=== PATIENT | male | born 1940 | race Caucasian/White ===

== ENCOUNTER 2019-09-23 12:29 | Emergency (ER) | payer MEDICARE ==
[2019-09-23 13:02] VITALS: BP 145/85; PULSE 66; RESP 16; TEMP 97.5
--- NOTE | 2019-09-23 13:28 | ED ---
Upper Extremity HPI - General Chief Complaint: Extremity Injury, Upper Stated Complaint: Fall/right elbow injury Time Seen by Provider: 09/23/19 13:05 Source: patient, RN notes reviewed Mode of arrival: wheelchair Limitations: no limitations - History of Present Illness Initial Comments: This an 79-year-old male presents emergency Department with chief complaint of right arm fracture. Patient was seen at [facility] and sent here for evaluation. Patient was diagnosed with a right olecranon fracture. She has an appointment on Thursday with Connie. Patient stated that the physician there is a today they felt that he needed to be seen sooner so presented. Patient denies any paresthesias states that his swollen but essentially no pain current ly. Patient states he had mechanical fall yesterday. Denies any head injury no other injuries noted. - Related Data Allergies Allergy/AdvReac Type Severity Reaction Status Date / Time No Known Allergies Allergy Verified 09/23/19 13:03 Review of Systems ROS Statement: Those systems with pertinent positive or pertinent negative responses have been documented in the HPI. ROS Other: All systems not noted in ROS Statement are negative. Past Medical History Past Medical History: Dementia, Hypertension History of Any Multi-Drug Resistant Organisms: None Reported Additional Past Surgical History / Comment(s): hip Past Psychological History: No Psychological Hx Reported Smoking Status: Former smoker Past Alcohol Use History: None Reported Past Drug Use History: None Reported General Exam Limitations: no limitations General appearance: alert, in no apparent distress Head exam: Present: atraumatic, normocephalic, normal inspection Respiratory exam: Present: normal lung sounds bilaterally. Absent: respiratory distress, wheezes, rales, rhonchi, stridor Cardiovascular Exam: Present: regular rate, normal rhythm, normal heart sounds. Absent: systolic murmur, diastolic murmur, rubs, gallop, clicks Extremities exam: Present: other (Right arm there is moderate swelling at the elbow, neurovascular intact right arm limited range of motion secondary to pain no pain proximal or distal.) Neurological exam: Present: alert, oriented X3 Skin exam: Present: warm, dry, intact, normal color. Absent: rash Course Vital Signs 09/23/19 12:59 Temperature 97.5 F L Pulse Rate 66 Respiratory 16 Rate Blood Pressure 145/85 O2 Sat by Pulse 97 Oximetry Procedures - Orthopedic Splinting/Casting Injury #1 Side: right Upper Extremity Injury Location: long arm, elbow Upper Extremity Immobilizer: posterior splint, synthetic pre-padded splint Medical Decision Making - Medical Decision Making X-rays were reviewed patient has stable fracture neurovascular intact no evidence of compartment syndrome patient was placed in a long-arm splint. He did have a small abrasion but states his tetanus is up-to-date. Patient will be discharged and will follow-up at his scheduled appointment on Thursday. Disposition Clinical Impression: Fracture of right olecranon process Disposition: HOME SELF-CARE Condition: Stable Instructions (If sedation given, give patient instructions): Arm Fracture in Adults (ED) Additional Instructions: Please return to the Emergency Department if symptoms worsen or any other concerns. Is patient prescribed a controlled substance at d/c from ED?: No Referrals: Elie Khan MD [Primary Care Provider] - 1-2 days Mendoza Freitas DO [Medical Doctor] - 1-2 days Time of Disposition: 13:27
[2019-09-23] MEDS ORDERED: ACET/COD 300 MG/30 MG STARTER PACK 6 TAB BTL PO STA (13:31)
== END 2019-09-23 13:42 | disposition home or self-care (01) ==
LOC: EC 12:29
DX: S52.021A Displaced fracture of olecranon process without intraarticular extension of right ulna, initial encounter for closed fracture (principal); I10 Essential (primary) hypertension; F03.90 Unspecified dementia, unspecified severity, without behavioral disturbance, psychotic disturbance, mood disturbance, and anxiety; Z87.891 Personal history of nicotine dependence; X58.XXXA Exposure to other specified factors, initial encounter
CPT/HCPCS: 29105; 99283

== ENCOUNTER 2019-09-30 12:07 | Inpatient (IN) | payer MEDICARE ==
[2019-09-29 08:59] VITALS: BMI 34.2
[~2019-09-30 12:07] MED LIST: DEXAMETHASONE SOD PHOSPHATE 10 MG/ML 1 ML VIAL IV ONE; HYDROmorphone 0.5 MG/0.5 ML SYRINGE IVP PRN; LIDOCAINE 1% 20 ML VIAL (10MG/ML) FOR IV START INTRADERMA PRN; SCOPOLAMINE 1.5MG/72HR PATCH TRANSDERM ONE
[2019-09-30] MEDS ORDERED: ONDANSETRON 4 MG/2 ML VIAL IVP ONE (13:27)
[2019-09-30] MEDS ORDERED: HYDROmorphone 0.5 MG/0.5 ML SYRINGE IVP PRN (14:15)
--- NOTE | 2019-09-30 14:15 | P.HPADDEND ---
H&P Addendum H&P Addendum Date: 09/30/19 At bedside in preop, the patient demonstrates significant somnolence. He is rousable and will follow commands. Per the patient's , this is much different from his normal baseline. She states that he has been sleeping much more and less interactive. Though he has advanced dementia, this is a notic eable change from his usual state. She also reports he has been having more falls. She hasn't to contact 911 to help get him up after a fall last few days. She states that he did later admit to hitting his head during the initial fall. He has also been having some urinary incontinence the last 4 days. I discussed the situation in detail with the patient's and daughter. I recommended canceling the procedure today. We will admit him for further workup to include a head CT and preliminary blood work. If this clinically stabilizes, we can move forward with fracture surgery during this admission. They expressed understanding and agreement with this plan.
[2019-09-30 14:46] LABS: Basophils % (A) 1 %; Eosinophils # (A) 0.2 k/uL (0-0.7); Eosinophils % (A) 2 %; HGB 13.6 gm/dL (13.0-17.5); Lymphocytes # (A) 0.6 k/uL (1.0-4.8); Lymphocytes % (A) 8 %; MCH 30.7 pg (25.0-35.0); MCHC 32.3 g/dL (31.0-37.0); MCV 95.1 fL (80.0-100.0); Mean Platelet Volume 7.1; Monocytes # (A) 0.6 k/uL (0-1.0); Monocytes % (A) 8 %; Neutrophils # (A) 5.9 k/uL (1.3-7.7); Neutrophils % (A) 80 %; Platelet Count 163 k/uL (150-450); RBC 4.41 m/uL (4.30-5.90); RDW 13.4 % (11.5-15.5); WBC 7.4 k/uL (3.8-10.6)
[2019-09-30] MEDS ORDERED: LACTATED RINGERS 1,000 ML IV ONE ×2 (15:06)
[2019-09-30 15:17] LABS: Glucose,Whole Blood 92 mg/dL (75-99)
--- NOTE | 2019-09-30 15:23 | CT ---
EXAMINATION TYPE: CT brain wo con DATE OF EXAM: 09/30/2019 COMPARISON: None HISTORY: Mental status changes. CT DLP: 1127.4 mGycm Automated exposure control for dose reduction was used. FINDINGS: Moderate generalized degenerative change with diffuse nonspecific low-attenuation the white matter. C alcification along the anterior interhemispheric fissure could represent calcified meningioma measuri ng approximately 1 cm. Intracranial atherosclerotic changes are noted. Changes of chronic sinusitis a re seen. Orbits are symmetric in appearance. IMPRESSION: 1. DEGENERATIVE AND NONSPECIFIC WHITE MATTER CHANGES MOST TYPICAL REMOTE MICROVASCULAR ISCHEMIA. IF T HERE IS CONCERN FOR ACUTE ISCHEMIA CORRELATE WITH MRI CLINICALLY WARRANTED. 2. 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
[2019-09-30 15:32] LABS: ALT 30 U/L (4-49); AST 42 U/L (17-59); African American GFR (CKD) >90 (>60 ml/min/1.73 sqM); Albumin 3.5 g/dL (3.5-5.0); Alkaline Phosphatase 80 U/L (38-126); Anion Gap 8 mmol/L; Blood Urea Nitrogen 19 mg/dL (9-20); Carbon Dioxide 27 mmol/L (22-30); Chloride 101 mmol/L (98-107); Glucose 96 mg/dL (74-99); Non-African American GFR(CKD) 86 (>60 ml/min/1.73 sqM); Potassium 3.8 mmol/L (3.5-5.1); Sodium 136 mmol/L (137-145); Total Bilirubin 1.4 mg/dL (0.2-1.3); Total Protein 6.3 g/dL (6.3-8.2)
[2019-09-30] MEDS ORDERED: ALBUTEROL NEBULIZED 2.5 MG/3 ML INHALATION PRN (17:24)
--- NOTE | 2019-09-30 17:28 | P.CONS ---
History of Present Illness - Reason for Consult Consult date: 09/30/19 lethargy Requesting physician: Mendoza Freitas - Chief Complaint right arm fracture - History of Present Illness Patient is an 79-year-old male with known history of high blood pressure, this child, falls, and alcohol use who initially presented for elective right humeral fracture repair with Dr. Freitas. In preop he was noted to have increased somnolence and falls. We have been asked to consult on him and he has been admitted for altered mentation. Patient seen and examined at bedside. He is alert and oriented X 1. Called for information. She was not able to pin point any changes. She reports that since fall on September 21 he has been more confused. Right after the fall she felt like his face has been asymmetrical, but this has been resolved. He has been sleeping more recently. He has been incontinent at night with urine which is more frequent, but was occurring prior to the fall. May have struck his head at the original fall. She reports cough for 3 weeks, dry cough. No other changes noted. Initially he was prescribed pain medications at night but only had 7 doses. He is now using tylenol for pain. He has not been following commands as well and his has had to call lift assist to get him out of the bed. Review of Systems unable to obtain due to dementia. As able to obtain from in HPI. ROS unobtainable: due to mental status Past Medical History Past Medical History: Dementia, Hypertension Additional Past Medical History / Comment(s): fx rt arm, vit d deficiency History of Any Multi-Drug Resistant Organisms: None Reported Additional Past Surgical History / Comment(s): rt hip surgery, b/l cataract Past Anesthesia/Blood Transfusion Reactions: No Reported Reaction Smoking Status: Former smoker Past Alcohol Use History: Daily Additional Drug Use History / Comment(s): walker - Past Family History Mother Family Medical History: Dementia, Diabetes Mellitus Sister(s) Family Medical History: Dementia Medications and Allergies Home Medications Medication Instructions Recorded Confirmed Type ALPRAZolam [Xanax] 0.5 mg PO 1400 09/29/19 09/30/19 History Losartan Potassium 100 mg PO DAILY 09/29/19 09/30/19 History Allergies Allergy/AdvReac Type Severity Reaction Status Date / Time No Known Allergies Allergy Verified 02/06/20 08:47 Physical Exam Osteopathic Statement: *. No significant issues noted on an osteopathic s tructural exam other than those noted in the History and Physical/Consult. Vitals: Vital Signs Temp Pulse Resp BP Pulse Ox 09/30/19 16:15 78 16 148/72 98 09/30/19 15:30 79 18 150/74 99 09/30/19 15:10 83 20 151/72 97 09/30/19 13:07 97.9 F 82 16 167/92 100 Intake and Output 09/30/19 09/30/19 09/30/19 06:59 14:59 22:59 Intake Total 1000 0 Output Total 200 Balance 1000 -200 Intake: IV 1000 0 Output: Urine 200 General: non toxic, no distress, appears at stated age, Obese Derm: Bruising right upper extremity, no unusual rashes/lesions, warm, dry Head: atraumatic, normocephalic, symmetric Eyes: EOMI, no lid lag, anicteric sclera, pupils equal round reactive to light ENT: Nose and ears atraumatic, no thrush, no pharyngeal erythema Neck: No thyromegaly, no cervical lymphadenopathy, trachea midline, supple Mouth: no lip lesion, mucus membranes moist Cardiovascular: S1S2 reg, no murmur, positive posterior tibial pulse bilateral, trace edema, capillary refill less than 2 seconds Lungs: Decreased bs bilateral, no rhonchi, no rales , no accessory muscle use Abdominal: soft, nontender to palpation, no guarding, no appreciable organomegaly, normal bowel sounds Ext: Right arm with dressing in place, no gross muscle atrophy, muscle strength 5 out of 5 bilateral lower extremities and left upper extremities, senior applications analyst strength intact R UE, , no contractures, Neuro: CN II-XI grossly intact, light touch intact all 4 extremities and b/l face, finger to nose poor on the left, unable to test on the right, Psych: Alert, oriented to self, appropriate affect Results CBC & Chem 7: 09/30/19 14:37 09/30/19 14:37 Labs: Abnormal Lab Results - Last 24 Hours (Table) 09/30/19 09/30/19 Range/Units 14:37 14:37 Lymphocytes # 0.6 L (1.0-4.8) k/uL Sodium 136 L (137-145) mmol/L Total Bilirubin 1.4 H (0.2-1.3) mg/dL CT Scan - head: report reviewed Assessment and Plan Assessment: acute encephalopathy - suspect possible post concussive syndrome - check TSH, B12 levels, UA - Neuro check q4 h - PT/OT evaluation HTN, controlled - losartan - fall BP Dementia - safe and supportive environment - xanax as needed Recent falls - fall precautions Right humerus fracture - tylenol Thank you for allowing us to participate in the care of this pleasant patient. Do not hesitate to contact us with questions. Someone can be reached from the [facility] hospitalist group all hours of the day at [phone] or via perfect serve.
[2019-09-30 18:26] LABS: Appearance,Urine Clear (Clear); Bilirubin,Urine Negative (Negative); Blood,Urine Negative (Negative); Color,Urine Yellow; Glucose,Urine (UA) Negative (Negative); Ketones,Urine 1+ (Negative); Leukocyte Esterase,Urine Negative (Negative); Nitrite,Urine Negative (Negative); PH, Urine 5.5 (5.0-8.0); Protein,Urine Negative (Negative); Specific Gravity,Urine 1.017 (1.001-1.035)
[2019-09-30 20:25] LABS: T4, Free (Free Thyroxine) 2.19 ng/dL (0.78-2.19)
[2019-09-30] MEDS: ALPRAZolam 0.5 MG TAB PO PRN (20:47)
[2019-09-30] MEDS: MELATONIN 5 MG TABLET PO PRN (23:51)
[2019-10-01] MEDS: ONDANSETRON 4 MG/2 ML VIAL IVP PRN (04:47)
[2019-10-01] MEDS ORDERED: PANTOPRAZOLE 40 MG/10 ML VIAL IVP ONE (05:01)
[2019-10-01 09:04] LABS: HCT 46.3 % (39.0-53.0); HGB 15.3 gm/dL (13.0-17.5); MCH 31.4 pg (25.0-35.0); MCHC 33.1 g/dL (31.0-37.0); MCV 95.1 fL (80.0-100.0); Mean Platelet Volume 8.2; Platelet Count 189 k/uL (150-450); RBC 4.87 m/uL (4.30-5.90); RDW 13.4 % (11.5-15.5)
[2019-10-01 09:08] LABS: African American GFR (CKD) >90 (>60 ml/min/1.73 sqM); Anion Gap 9 mmol/L; Blood Urea Nitrogen 20 mg/dL (9-20); Calcium 9.3 mg/dL (8.4-10.2); Carbon Dioxide 30 mmol/L (22-30); Chloride 100 mmol/L (98-107); Glucose 97 mg/dL (74-99); Non-African American GFR(CKD) 82 (>60 ml/min/1.73 sqM); Sodium 139 mmol/L (137-145)
[2019-10-01] MEDS: LOSARTAN 50 MG TAB PO SCH (09:18)
[2019-10-01] MEDS: LACTATED RINGERS 1,000 ML IV SCH (09:18)
--- NOTE | 2019-10-01 11:19 | P.PN ---
Progress Note - Text Progress Note Date: 10/01/19 Orthopedics: History of present illness: Patient is a pleasant 79-year-old male who is seen exam at the bedside with a sitter present. He is known to have dementia. He was scheduled to undergo ORIF of the right olecranon yesterday with Dr. Freitas. He was found to have significant somnolence in preop different from his normal baseline. Family was with him at that time. His surgery was postponed. Patient is able to answer some questions appropriately at the bedside and is arousable. His right elbow pain is currently well controlled. He is not experiencing any pain at the right hand or right wrist. Head CT imaging was performed yesterday without significant acute findings. He has been seen and examined by medicine he states his neurological change and be due to postconcussive symptoms. Patient has a medical history which includes dementia and hypertension. Physical Exam: Patient is arousable and will answer some questions appropriately Vital signs stable Adequate chest excursion with deep inspiration and expiration; Patient currently on O2 nasal cannula Splint and Kash wrap intact over the right elbow; no active drainage at the dressing site Patient is able to wiggle fingers and wrist of the right upper extremity significant difficulty Neurovascular intact right upper extremity Significant bruising over the posterior right hand No pain with palpation over the right shoulder Pertinent studies: CT of the brain taken on 09/30/2019: Degenerative and nonspecific white matter changes most typical remote microvascular ischemia; if concern for acute ischemic correlate with MRI as clinically warranted; suspect a subcentimeter interhemispheric extra-axial lesion likely related to calcified hemangioma Assessment: Right olecranon fracture Right elbow pain Acute encephalopathy dissected possible postconcussive syndrome History of recent falls Plan: 1. Patient has been discussed in detail with Dr. Freitas. We'll currently planned to make patient nothing by mouth status starting at midnight, 10/02/2019 in anticipation for possible surgical intervention tomorrow, 10/02/2019. Patient will be seen and examined by Dr. Freitas today. If the patient is able to be cleared from medical standpoint, he'll plan to contact the operating room department and scheduling in regards to scheduling surgical intervention for tomorrow. At this time, patient will continue to keep splint and Kash wrap intact over the right upper extremity. He should avoid excessive activities right upper extremity. He may continue to eat throughout the day today until becoming nothing by mouth status at midnight. 2. Patient will continue to be seen exam by medicine for his other medical diagnoses
--- NOTE | 2019-10-01 12:24 | P.PN ---
Subjective Progress Note Date: 10/01/19 Patient is an 79-year-old male with known history of high blood pressure, Dementia, falls, urinary incontinence and alcohol use who initially presented for elective right humeral fracture repair with Dr. Freitas. In preop he was noted to have increased somnolence and falls. We have been asked to consult on him and he has been admitted for altered mentation. Today patient's is awake but pleasantly confused and he is not aware of his surrounding. Patient is now monitored by one-to-one sitter, as reported by the nurse that patient's strength to get out of the bed overnight and pulling out his IV and monitor leads. When I saw the patient patient was sleeping soundly. He was able to with gentle shake and calling his name. Unable to get any meaningful information from the patient. Patient denied chest pain, palpitation, headache, dizziness, nausea, vomiting, diarrhea and denies rest of the review system but I doubt the reliability due to presence of his confusion/dementia. Orthopedic associated Julio requested for medical clearance for patient for possible surgical repair of his right elbow fracture in the morning. Objective - Vital Signs Vital signs: Vital Signs Temp 98.4 F 10/01/19 07:00 Pulse 90 10/01/19 01:44 Resp 16 10/01/19 07:00 BP 167/85 10/01/19 07:00 Pulse Ox 94 L 10/01/19 07:00 Intake & Output 09/30/19 10/01/19 10/01/19 18:59 06:59 18:59 Intake Total 1275 Output Total 200 Balance 1075 Weight 111.13 kg Intake: IV 1275 Output: Urine 200 Other: Voiding Method Urinal Diaper # Voids 2 - Constitutional Constitutional Comment(s): Pleasantly confused and disoriented without abnormal behaviors - Neck Neck: Present: normal ROM. Absent: lymphadenopathy, rigidity - Respiratory Respiratory: bilateral: CTA, diminished, rales (Coarse central crackles that changes with coughing.), negative: dullness, rhonchi, wheezing - Cardiovascular Rhythm: regular Heart sounds: normal: S1, S2 Abnormal Heart Sounds: Absent: systolic murmur, diastolic murmur, S3 Gallop, S4 Gallop - Gastrointestinal General gastrointestinal: Present: normal bowel sounds, soft. Absent: distended, rigid, tenderness - Allied health notes Allied health notes reviewed: nursing - Labs CBC & Chem 7: 10/01/19 07:08 10/01/19 07:08 Labs: Abnormal Lab Results - Last 24 Hours (Table) 09/30/19 09/30/19 09/30/19 Range/Units 14:37 14:37 14:37 Lymphocytes # 0.6 L (1.0-4.8) k/uL Sodium 136 L (137-145) mmol/L Total Bilirubin 1.4 H (0.2-1.3) mg/dL TSH 0.407 L (0.465-4.680) mIU/L Urine Ketones (Negative) 09/30/19 Range/Units 18:00 Lymphocytes # (1.0-4.8) k/uL Sodium (137-145) mmol/L Total Bilirubin (0.2-1.3) mg/dL TSH (0.465-4.680) mIU/L Urine Ketones 1+ H (Negative) Assessment and Plan Plan: Acute Encephalopathy - Possible post concussive syndrome - Pt. continue to be confused, baseline not known and no family member present at this time. - Pt. may have shown some behaviors overnight and 1-1 sitter was placed. - Still recovering from Post Concussive syndrome. - Suggest increase activity as tolerated with PT/OT and right UEx splint support. - Suggest hold on surgery for next 24 - 48 hours as anesthesia meds may further worsens Encephalopathy. - mud worker involvement as pt. may need DANE post hospitalization. Sub-Clinical Hyperthyroidism - As noted from low TSH and upper limit FT4. - Will check thyroid U/S HTN, controlled - losartan Dementia - safe and supportive environment - Avoid xanax as possible Recent falls - fall precautions Right humerus fracture - tylenol and your care - Care coordinated with Julio re: pre-opp clearance. Time with Patient: Less than 30
--- NOTE | 2019-10-01 12:44 | US ---
EXAMINATION TYPE: US thyroid st tissue head/neck DATE OF EXAM: 10/01/2019 COMPARISON: NONE CLINICAL HISTORY: abn thyroid levels. abnormal thyroid levels GLAND SIZE: Right Lobe: 2.7 x 1.6 x 1.8 cm Overall Parenchyma: homogenous Left Lobe: 2.8 x 1.7 x 2.2 cm Overall Parenchyma: homogeneous Isthmus Thickness: not seen NODULES RIGHT: # of nodules measured on right: 2 1. 0.5 X 0.4 x 0.5 cm mixed nodule at the upper pole with well-defined margins; . This nodule is w ider than tall and shows no intranodular vascularity. Prior size: no prior 2. 0.5 X 0.5 x 0.5 cm mixed nodule at the mid pole with well-defined margins; . This nodule is wide r than tall and shows no intranodular vascularity. Prior size: no prior LEFT: # of nodules measured on left: 1 1. 0.7 X 0.6 x 0.6 cm cystic nodule at the mid pole with well-defined margins; . This nodule is wi lito than tall and shows no intranodular vascularity. Prior size: no prior ISTHMUS: # of nodules measured in the isthmus: 0 Bilateral neck scanned, no evidence of lymphadenopathy. Technical limitations due to patient's body habitus IMPRESSION: MULTINODULAR GOITER.
[2019-10-01] MEDS: ALPRAZolam 0.5 MG TAB PO PRN (16:00)
[2019-10-02 07:04] LABS: Glucose,Whole Blood 86 mg/dL (75-99)
[2019-10-02] MEDS: LOSARTAN 50 MG TAB PO SCH (08:34)
[2019-10-02] MEDS: LACTATED RINGERS 1,000 ML IV SCH (08:34)
[2019-10-02] MEDS: ALBUTEROL NEBULIZED 2.5 MG/3 ML INHALATION SCH ×3 (11:20→19:10)
--- NOTE | 2019-10-02 11:52 | P.PN ---
<Talon Stanley - Last Filed: 10/02/19 11:48> Progress Note - Text Progress Note Date: 10/02/19 Orthopedics: History of present illness: Patient is a pleasant 79-year-old male who is seen exam at the bedside with a sitter present. He is known to have dementia. He was scheduled to undergo ORIF of the right olecranon Thursday with Dr. Freitas. He was found to have significant somnolence in preop different from his normal baseline. Family was with him at that time. His surgery was postponed. Today family is present at the bedside with the patient. He is much more awake and alert today. He is able to answer some questions appropriately. He did remove his splint and Kash wrap over the right arm. He is not currently using his right upper extremity. Family does feel he is better today as compared to yesterday in terms of his mentation. His right elbow pain is currently well controlled. He is not experiencing any pain at the right hand or right wrist. Head CT imaging was performed Thursday without significant acute findings. He has been seen and exam ined by medicine he states his neurological change and be due to postconcussive symptoms. Patient has a medical history which includes dementia and hypertension. Patient was discussed in detail with medicine yesterday who states the earliest they would plan to clear him for surgical intervention with 10/03/2019. Physical Exam: Patient is awake and alert and is able to answer some questions appropriately Vital signs stable Adequate chest excursion with deep inspiration and expiration Splint and Kash wrap has been removed over the right elbow Evidence of significant bruising was some swelling over the right elbow Pain with palpation over the right olecranon No active drainage over the fracture site of the right elbow Patient is able to wiggle fingers and wrist of the right upper extremity significant difficulty Neurovascular intact right upper extremity Significant bruising over the posterior right hand and over the right forearm No pain with palpation over the right shoulder Pertinent studies: CT of the brain taken on 09/30/2019: Degenerative and nonspecific white matter changes most typical remote microvascular ischemia; if concern for acute ischemic correlate with MRI as clinically warranted; suspect a subcentimeter interhemispheric extra-axial lesion likely related to calcified hemangioma Assessment: Right olecranon fracture Right elbow pain Acute encephalopathy dissected possible postconcussive syndrome History of recent falls Plan: 1. Patient has been discussed in detail with Dr. Freitas. Patient has had improvement overall as compared to being seen and examined yesterday in regards to his mentation. He is able to answer some questions appropriately. He is much more awake and alert today. We'll currently planned to make patient nothing by mouth status starting at midnight, 10/03/2019 in anticipation for possible surgical intervention tomorrow, 10/03/2019. Patient will be seen and examined by Dr. Freitas today. If the patient is able to be cleared from medical standpoint, he'll plan to contact the operating room department and scheduling in regards to scheduling surgical intervention for tomorrow. At this time, patient has removed the splint and Kash wrap over the right elbow. We will attempt to put the splint back intact at the patient is able to tolerate it. If the splint is reapplied, patient should continue to keep splint and Kash wrap intact over the right upper extremity. He should avoid excessive activities right upper extremity. He may continue to eat throughout the day today until becoming nothing by mouth status at midnight. 2. Patient will continue to be seen exam by medicine for his other medical diagnoses; currently waiting for medical clearance per medicine <Mendoza Freitas - Last Filed: 10/02/19 18:29> Progress Note - Text Reviewed and agree with above (amendments/corrections noted below). The patient was subsequently seen and examined by me. S: Upon entering, the patient was awkwardly trying to climb out of bed. Much more alert and interactive. Provides some appropriate answers but still demonstrates some very abnormal responses. No family present. O: Splint in place and in good position. A: Right olecranon fracture Acute encephalopathy: post-concussion syndrome vs acute exacerbation of underlying dementia P: Difficulty to ascertain patient's baseline. Will discuss further with the patient's regarding her assessment of his current condition. No surgery planned for tomorrow. Maintain splint, if possible. If patient is able to remove it completely, please reapply (if he is able to tolerate it). Mendoza Freitas D.O. [facility]
--- NOTE | 2019-10-02 12:47 | P.PN ---
Subjective Progress Note Date: 10/02/19 Patient is an 79-year-old male with known history of high blood pressure, Dementia, falls, urinary incontinence and alcohol use who initially presented for elective right humeral fracture repair with Dr. Freitas. In preop he was noted to have increased somnolence and falls. We have been asked to consult on him and he has been admitted for altered mentation. On 10/01/2019 patient's was awake but pleasantly confused and he is not aware of his surrounding. Patient was monitored by 1-1 sitter, as reported by the nurse that patient's strength to get out of the bed overnight and pulling out his IV and monitor leads. On 10/02/2019 When I saw the patient, he was trying to get her out of the bed and was confused stating that he wanted to take the flashlight and pointing towards the son. Although he was able to be retracted and was able to be engaged in verbal conversation but his responses was totally bizarre again today I was unable to get any meaningful information from him. Objective - Vital Signs Vital signs: Vital Signs Temp 97.9 F 10/02/19 07:41 Pulse 84 10/02/19 11:34 Resp 16 10/02/19 07:41 BP 151/76 10/02/19 07:41 Pulse Ox 95 10/02/19 07:41 Intake & Output 10/01/19 10/02/19 10/02/19 18:59 06:59 18:59 Intake Total 600 Balance 600 Intake: IV 600 Lactated Ringers 1,000 ml 600 @ 75 mls/hr IV .[id number] [facility] Rx#:[id number] Other: Voiding Method Diaper # Voids 2 - Constitutional Constitutional Comment(s): Pleasantly confused and disoriented. - Neck Neck: Present: normal ROM. Absent: rigidity, stridor - Respiratory Respiratory: bilateral: diminished, wheezing (Few scattered bilateral.), negative: dullness, rales, rhonchi - Cardiovascular Rhythm: regular Heart sounds: normal: S1, S2 Abnormal Heart Sounds: Absent: systolic murmur, diastolic murmur, S3 Gallop, S4 Gallop - Gastrointestinal General gastrointestinal: Present: normal bowel sounds, soft. Absent: distended, rigid - Allied health notes Allied health notes reviewed: nursing - Labs CBC & Chem 7: 10/01/19 07:08 10/01/19 07:08 Assessment and Plan Plan: Acute Encephalopathy - Possible post concussive syndrome - Pt. continue to be confused, baseline not known and no family member present at this time. - 1-1 sitter was removed but patient is still trying to roll off the bed and has pulled out right upper external to support/splint. - Still recovering from Post Concussive syndrome. - Suggest increase activity as tolerated with PT/OT and right UEx splint support. - Suggest hold on surgery for next 24 - 48 hours as anesthesia meds may further worsens Encephalopathy. - I would recommend neurology involvement and I will take privilege and consulting the on-call neurologist for further input in post concussive syndrome management prior to any nonemergent surgical intervention. - biofuels plant construction worker involvement as pt. may need DANE post hospitalization. COPD - Patient was on when necessary handheld MLS treatment and was not receiving gait and now patient is having some wheezing with coughing spells I will start him on scheduled hand-held nebulize treatment with albuterol/Atrovent and monitor. Sub-Clinical Hyperthyroidism - Ultrasound of the thyroid showed multinodular goiter and recommended that patient needs to be referred to foundry laborer coreroom as an outpatient for further evaluation in next 3-4 weeks. HTN, controlled - losartan Dementia - safe and supportive environment - Avoid xanax as possible Recent falls - fall precautions Right humerus fracture - tylenol and your care - Care coordinated with Julio re: pre-opp clearance. Time with Patient: Less than 30
--- NOTE | 2019-10-02 17:12 | P.CNNES ---
History of Present Illness Consult date: 10/02/19 Reason for Consult: mental status change History of Present Illness: The patient is an 79-year-old male who was seen in neurologic [facility] on October 02, 2019, via teleneurology. History is obtained entirely from the chart. Apparently the patient was scheduled for an elective surgery on his right upper extremity. On the morning of surgery, he was noted to be somewhat somnolent and having difficulty answering questions. Per the chart, patient's stated that he had been having several falls recently. He was more ataxic. He may have hit his head with one of his falls. Since that time, he has apparently been having more difficulty following instructions. Has been sleeping more and has been more confused. The patient does have a history of advanced dementia. There is concerned that he may have had a concussion and may be suffering from postconcussion syndrome. Review of Systems ROS unobtainable: due to mental status Past Medical History Past Medical History: Dementia, Hypertension Additional Past Medical History / Comment(s): fx rt arm, vit d deficiency History of Any Multi-Drug Resistant Organisms: None Reported Additional Past Surgical History / Comment(s): rt hip surgery, b/l cataract Past Anesthesia/Blood Transfusion Reactions: No Reported Reaction Past Psychological History: No Psychological Hx Reported Additional Psychological History / Comment(s): dementia Smoking Status: Former smoker Past Alcohol Use History: Daily Additional Past Alcohol Use History / Comment(s): quit smoking 30 years ago, smoked 30 years 1 1/2 ppd Past Drug Use History: None Reported Additional Drug Use History / Comment(s): walker - Past Family History Mother Family Medical History: Dementia, Diabetes Mellitus Sister(s) Family Medical History: Dementia Medications and Allergies Home Medications Medication Instructions Recorded Confirmed Type ALPRAZolam [Xanax] 0.5 mg PO 1400 09/29/19 09/30/19 History Losartan Potassium 100 mg PO DAILY 09/29/19 09/30/19 History Allergies Allergy/AdvReac Type Severity Reaction Status Date / Time No Known Allergies Allergy Verified 09/29/19 08:47 Physical Examination - Vital Signs Vital Signs: Vital Signs Temp Pulse Pulse Resp BP Pulse Ox 10/02/19 15:25 80 10/02/19 15:14 78 10/02/19 11:34 84 10/02/19 11:22 76 10/02/19 07:41 97.9 F 75 16 151/76 95 10/02/19 04:57 16 10/02/19 01:15 98.4 F 72 15 148/66 92 L 10/01/19 23:40 16 10/01/19 19:42 15 Intake and Output 10/02/19 10/02/19 10/02/19 06:59 14:59 22:59 Intake Total 110 Balance 110 Intake: Oral 110 Other: Voiding Method Diaper # Voids 2 1 Gen.: Upon entry to the room, the patient is found to be askew in the bed. He is partially clothed. He appears to be in no acute distress. HEENT: Head is atraumatic, normocephalic. Fundus not visualized. There is mild erythema of the right sclera. Mucous membranes are moist. Heart: Regular rate and rhythm Extremities: There is a soft cast on the right upper extremity. There is no lower extremity edema. Neurological examination Mental status: Patient is awake and alert. He is oriented to his first name. He is able to tell me his 's name. He is not oriented to the current year or his age.His speech is nonsensical. He is able to follow simple instructions. Cranial nerves: Pupils are equal, round and reactive to light. Visual yang are full to confrontation. Extraocular muscles are intact. There is no obvious facial asymmetry. Shoulder shrug is symmetric. Tongue protrudes midline. Motor: Strength in the left upper extremity is 3/5. bilateral lower extremity strength 5/5. Sensation: Grossly intact Deep tendon reflexes: 2+/4+ throughout. Right upper extremity reflexes are not tested. Results - Laboratory Findings CBC and BMP: 10/01/19 07:08 10/01/19 07:08 Abnormal Lab Findings: Abnormal Labs 09/30/19 09/30/19 09/30/19 14:37 14:37 14:37 Lymphocytes # 0.6 L Sodium 136 L Total Bilirubin 1.4 H TSH 0.407 L Urine Ketones 09/30/19 18:00 Lymphocytes # Sodium Total Bilirubin TSH Urine Ketones 1+ H Assessment and Plan Assessment: impressions: 1. Reported somnolence and increasing confusion per patient's , following a fall with questionable head injury-it is difficult to accurately assess the diagnosis of postconcussion syndrome -The patient is no longer lethargic 2. Alzheimer's type dementia 3. Right arm fracture Plan: Recommendations: 1. Would hold off on using narcotics or other sedating medications unless absolutely necessary 2. Patient is neurologically stable for surgery; if concerns remain, consider postponing surgery for one week following patient's fall Time with Patient: Greater than 30 (sspent 45 minutes with patient)
[2019-10-02 21:20] LABS: Glucose,Whole Blood 95 mg/dL (75-99)
[2019-10-02] MEDS: ACETAMINOPHEN TAB 325 MG TAB PO PRN (23:49)
[2019-10-02] MEDS: MELATONIN 5 MG TABLET PO PRN (23:49)
[2019-10-03] MEDS: LACTATED RINGERS 1,000 ML IV SCH (07:04)
[2019-10-03 07:20] LABS: Glucose,Whole Blood 100 mg/dL (75-99)
[2019-10-03] MEDS: ALBUTEROL NEBULIZED 2.5 MG/3 ML INHALATION SCH ×5 (09:16→19:44)
--- NOTE | 2019-10-03 09:20 | P.PN ---
<Tania Elias - Last Filed: 10/03/19 14:10> Subjective Progress Note Date: 10/03/19 Principal diagnosis: Right olecranon fracture This is an 79 year-old male who we admitted for evaluation of worsening of his mental status and canceled his ORIF of the right olecranon on Thursday. The patient was evaluated at the bedside today. No family is present this morning. The patient denies nausea, vomiting, abdominal pain, shortness of breath, and chest pain this morning. He states his pain is controlled at this time. He was found trying to get out of bed and putting his leg over the lower bed rail to get to the bathroom to be cleaned up "to go to scientologist." The splint is intact to the right upper extremity. Objective - Vital Signs Vital signs: Vital Signs Temp 98.1 F 10/03/19 07:08 Pulse 68 10/03/19 07:08 Resp 16 10/03/19 07:08 BP 171/92 10/03/19 07:08 Pulse Ox 95 10/03/19 07:08 Intake & Output 10/02/19 10/03/19 10/03/19 18:59 06:59 18:59 Intake Total 110 110 Balance 110 110 Intake: Oral 110 110 Other: Voiding Method Diaper Diaper Incontinent Incontinent # Voids 1 1 - Exam The patient is a pleasant 79-year-old male who is in no acute distress. He is alert and oriented 1. The splint to the right upper extremity is clean dry and intact. He is able to wiggle his fingers without difficulty. Neurological and circulatory status is intact. - Labs CBC & Chem 7: 10/01/19 07:08 10/01/19 07:08 Labs: Abnormal Lab Results - Last 24 Hours (Table) 10/03/19 Range/Units 07:19 POC Glucose (mg/dL) 100 H (75-99) mg/dL Assessment and Plan (1) Post concussive syndrome Current Visit: Yes Status: Acute Code(s): F07.81 - POSTCONCUSSIONAL SYNDROME SNOMED Code(s): 11345266 (2) Fracture of right olecranon process Current Visit: No Status: Acute Code(s): S52.021A - DISP FX OF OLECRAN PRO W/O INTARTIC EXTN RIGHT ULNA, INIT SNOMED Code(s): 072084869 Plan: The clinical findings were discussed with the patient and nursing staff. No family is present at this time. It is difficult to assess if the patient is back to his baseline mental status at this time. No surgery planned for today. We will attempt to discuss this further with the patient's later today. We will continue to follow with internal medicine and neurology. Maintain splint to the right upper extremity. If the patient is able to completely , please reapply and tolerated. We will continue to follow patient closely and make further recommendations as needed. <Mendoza Freitas - Last Filed: 10/03/19 21:42> Objective - Vital Signs Vital signs: Vital Signs Temp 97.9 F 10/03/19 19:30 Pulse 76 10/03/19 19:30 Resp 14 10/03/19 19:30 BP 136/73 10/03/19 19:30 Pulse Ox 95 10/03/19 19:30 Intake & Output 10/03/19 10/03/19 10/04/19 06:59 18:59 06:59 Intake Total 110 600 Balance 110 600 Intake: IV 600 Lactated Ringers 1,000 ml 600 @ 75 mls/hr IV .[id number] [facility] Rx#:[id number] Oral 110 Other: Voiding Method Diaper Diaper Incontinent Incontinent # Voids 1 # Bowel Movements 1 - Labs CBC & Chem 7: 10/01/19 07:08 10/01/19 07:08 Labs: Abnormal Lab Results - Last 24 Hours (Table) 10/03/19 10/03/19 Range/Units 07:19 17:03 POC Glucose (mg/dL) 100 H 102 H (75-99) mg/dL Assessment and Plan Plan: Discussed with KANNAN Elias and agree with above. I spoke with Mrs. Darnell. Though her is showing persistent confusion (worse than his normal baseline), I do not feel this is likely to significantly improve until we get him back to a more normal routine. I recommended proceeding with surgery to stabilize the fracture and begin rehab. She would prefer to care for him at home, if possible. I recommended starting with a gait and safety evaluation by the physical therapy team after surgery. We will plan for surgery tomorrow evening. NPO after breakfast. Mendoza Freitas D.O. [facility]
[2019-10-03] MEDS: LOSARTAN 50 MG TAB PO SCH (09:45)
[2019-10-03 12:07] LABS: Glucose,Whole Blood 83 mg/dL (75-99)
[2019-10-03] MEDS: ACETAMINOPHEN TAB 325 MG TAB PO PRN ×2 (16:48→22:53)
[2019-10-03 17:07] LABS: Glucose,Whole Blood 102 mg/dL (75-99)
[2019-10-03] MEDS: MELATONIN 5 MG TABLET PO PRN (22:53)
[2019-10-04] MEDS: LACTATED RINGERS 1,000 ML IV SCH ×2 (06:06→17:00)
[2019-10-04] MEDS: ALBUTEROL NEBULIZED 2.5 MG/3 ML INHALATION SCH ×4 (07:02→21:17)
[2019-10-04 07:27] LABS: Glucose,Whole Blood 83 mg/dL (75-99)
--- NOTE | 2019-10-04 07:44 | P.PN ---
Subjective Progress Note Date: 10/03/19 The patient was seen and examined with at the beside. The patient noted that he feels well. He denied pain at his arm or any additional complaints. Denied chest pain, SOB, fever, chills, nausea, vomiting, or abdominal pain. The patient was AAOx1 during the interview, which as per the is similar to baseline. The patient believed he was at [facility] and was unable to state the year. Objective - Vital Signs Vital signs: Vital Signs Temp 98.1 F 10/03/19 07:08 Pulse 76 10/03/19 13:00 Resp 16 10/03/19 07:08 BP 171/92 10/03/19 07:08 Pulse Ox 95 10/03/19 07:08 Intake & Output 10/02/19 10/03/19 10/03/19 18:59 06:59 18:59 Intake Total 110 110 600 Balance 110 110 600 Intake: IV 600 Lactated Ringers 1,000 ml 600 @ 75 mls/hr IV .[id number] [facility] Rx#:[id number] Oral 110 110 Other: Voiding Method Diaper Diaper Incontinent Incontinent # Voids 1 1 # Bowel Movements 1 - Exam General: Non-toxic, in no acute distress, appears stated age, obese HEENT: NC/AT, anicteric sclerae, moist conjunctiva, no lid-lag, PERRLA Cardiovascular: S1/S2 wnl, no murmurs, rubs, or gallops Lungs: Clear to auscultation, normal respiratory effort, no accessory muscle use Abdominal: Soft, non-tender, non-distended, no guarding, rebound, or rigidity Skin: Warm, dry Extremities: No edema or contractures, RUE with AMADO bandage and brace in place Psychiatric: Awake, oriented only to person Neuro: CN II-XII grossly intact, Strength 5/5 in all 4 extremities (including RUE with counter cutter strength, Speech intact, Sensation to light touch grossly intact throughout - Labs CBC & Chem 7: 10/01/19 07:08 10/01/19 07:08 Labs: Abnormal Lab Results - Last 24 Hours (Table) 10/03/19 10/03/19 Range/Units 07:19 17:03 POC Glucose (mg/dL) 100 H 102 H (75-99) mg/dL Assessment and Plan Plan: Acute Encephalopathy, resolved, possibly due to delirium with baseline of dementia -As per the at the bedside, the patient is at baseline -There was suspicious for post concussive syndrome -Neurology recs appreciated -Patient optimized for surgery R olecranon fracture -Surgery consulted COPD -C/w home Nebulizers Sub-Clinical Hyperthyroidism -Ultrasound of the thyroid showed multinodular goiter and recommended that patient needs to be referred to real estate services coordinator as an outpatient for further evaluation in next 3-4 weeks. HTN, controlled -Home med: Losartan Recent falls -Fall precautions
[2019-10-04] MEDS: LOSARTAN 50 MG TAB PO SCH (09:01)
[2019-10-04 11:44] LABS: Glucose,Whole Blood 110 mg/dL (75-99)
--- NOTE | 2019-10-04 16:10 | P.PN ---
Subjective Progress Note Date: 10/04/19 The patient was seen and examined at the bedside on 10/04. He was sleeping though was easily arousable. No family at the bedside. The patient denied active complaints. Denied pain at the R arm. Denied chest pain, SOB, fever, chills, nausea, or vomiting. Objective - Vital Signs Vital signs: Vital Signs Temp 98.3 F 10/04/19 07:00 Pulse 74 10/04/19 07:11 Resp 16 10/04/19 07:00 BP 172/71 10/04/19 07:00 Pulse Ox 94 L 10/04/19 07:00 Intake & Output 10/03/19 10/04/19 10/04/19 18:59 06:59 18:59 Intake Total 600 225 Balance 600 225 Intake: IV 600 225 Lactated Ringers 1,000 ml 600 225 @ 75 mls/hr IV .[id number] [facility] Rx#:[id number] Other: Voiding Method Diaper Diaper Diaper Incontinent Incontinent Incontinent # Voids 4 1 # Bowel Movements 1 1 - Exam General: Non-toxic, in no acute distress, appears stated age, obese HEENT: NC/AT, anicteric sclerae, moist conjunctiva, no lid-lag, PERRLA Cardiovascular: S1/S2 wnl, no murmurs, rubs, or gallops Lungs: Clear to auscultation, normal respiratory effort, no accessory muscle use Abdominal: Soft, non-tender, non-distended, no guarding, rebound, or rigidity Skin: Warm, dry Extremities: No edema or contractures, RUE with AMADO bandage and brace in place Psychiatric: Awake, oriented only to person Neuro: CN II-XII grossly intact, Strength 5/5 in all 4 extremities (including RUE with cost recovery technician strength), Speech intact, Sensation to light touch grossly intact throughout - Labs CBC & Chem 7: 10/01/19 07:08 10/01/19 07:08 Labs: Abnormal Lab Results - Last 24 Hours (Table) 10/03/19 10/04/19 Range/Units 17:03 11:41 POC Glucose (mg/dL) 102 H 110 H (75-99) mg/dL Assessment and Plan Plan: Acute Encephalopathy, resolved, possibly due to delirium with baseline of dementia -There was suspicion for post concussive syndrome -Neurology recs appreciated -Patient optimized for surgery R olecranon fracture -Surgery consulted COPD -C/w home Nebulizers Sub-Clinical Hyperthyroidism -Ultrasound of the thyroid showed multinodular goiter and recommended that patient needs to be referred to soda flaker as an outpatient for further evaluation in next 3-4 weeks. HTN, controlled -Home med: Losartan Recent falls -Fall precautions
[2019-10-04] MEDS: ONDANSETRON 4 MG/2 ML VIAL IVP PRN (17:11)
[2019-10-04 17:12] LABS: Glucose,Whole Blood 89 mg/dL (75-99)
[2019-10-04] MEDS ORDERED: fentaNYL (PF) 50 MCG/ML 2 ML AMP ONE (17:55)
[2019-10-04] MEDS ORDERED: SUCCINYLCHOLINE CHLORIDE 100 MG/5 ML SYR IV ONE (17:55)
[2019-10-04] MEDS ORDERED: LIDOCAINE 1% INJ 10MG/ML (20 ML MDV) ONE (17:55)
[2019-10-04] MEDS ORDERED: PROPOFOL 10 MG/ML 20 ML VIAL IV ONE (17:55)
[2019-10-04] MEDS ORDERED: ROCURONIUM BROMIDE 10 MG/ML 5 ML VIAL IV ONE (17:55)
[2019-10-04] MEDS ORDERED: NEOSTIGMINE 1 MG/ML 10 ML VIAL ONE (17:55)
[2019-10-04] MEDS ORDERED: GLYCOPYRROLATE 0.2 MG/ML 2 ML VIAL ONE (17:55)
[2019-10-04] MEDS ORDERED: LACTATED RINGERS 1,000 ML IV ONE (18:57)
[2019-10-04] MEDS ORDERED: LIDOCAINE 1%-EPI 1:100,000 20 ML VIAL SQ ONE ×3 (20:31→20:55)
[2019-10-04] MEDS ORDERED: ROPIVACAINE 5 MG/ML 30 ML VIAL MISCELLANE ONE ×3 (20:31→20:55)
--- NOTE | 2019-10-04 21:31 | P.OP ---
Date of Procedure: 10/04/19 Preoperative Diagnosis: Comminuted, intra-articular right olecranon fracture Postoperative Diagnosis: Comminuted, intra-articular right olecranon fracture Procedure(s) Performed: Open reduction and internal fixation of comminuted, intra-articular right o lecranon fracture Implants: Acumed 9-hole locking proximal plate ulna plate with locking and cortical screws, 2.7mm lag screw Anesthesia: GETA Surgeon: Mendoza Freitas Estimated Blood Loss (ml): 75 Condition: stable Disposition: PACU Indications for Procedure: The patient is an 79-year-old male who sustained a displaced right olecranon fracture after a mechanical fall. Treatment options (and associated risks and benefits) were discussed in the office with the patients . Given the fracture pattern, his advanced dementia and inability to adhere to activity restrictions (and inability to tolerate a splint/cast), surgical stabilization was recommended. Surgery was initially postoponed due to altered mental status. In preop, additional questions were addressed and she was in agreement to proceed with surgery. Consent forms were signed. The operative site was confirmed and marked. Description of Procedure: The patient was brought to the operating suite. General anesthesia and pr ophylactic IV antibiotics were administered uneventfully. A tourniquet was applied. He was positioned in the left lateral decubitus position on a beanbag with the right arm over a bolster. All bony prominences were well-padded. The right upper extremity was prepped and draped in standard, sterile fashion. A timeout was performed, confirming patient identifiers, the operative side, the site and the procedure to be performed: all team members expressed agreement. The limb was exsanguinated with an Esmarch and the tourniquet was inflated. A midline posterior incision was marked, curving laterally around the tip of the olecranon. The skin was sharply incised and full-thickness skin flaps were elevated. The fracture site was identified. The proximal aspect of the fracture was comminuted with a relatively small fragment of the olecranon tip. There was also a large, thin fragment butterfly fragment of the medial wall. The periosteal and fascial attachments were carefully reflected to expose the fracture edges. A [place] was inserted to open the fracture site. Hematoma and fibrous tissue were resected with rongeurs and curettes. The joint was copiously irrigated with normal saline. There was no obvious articular damage to the visualized portions of the distal humerus. The fracture fragments were mobilized to achieve provisional reduction. The periosteum of the proximal ulna was sharply elevated in preparation for plate placement. Pointed reduction clamps were applied to the fractures. A 0.062 K wire was inserted into the most proximal fragment and advanced across the fracture for temporary stabilization. The plate was selected, factoring in the patients anatomy and fracture pattern. This was positioned on the proximal ulna and provisionally pinned in place. Fracture reduction and plate position were assessed on orthogonal imaging. There was residual incongruity of the articular surface. The clamps were removed and the fracture fragments were remanipulated, achieving better reduction. The clamps were reapplied. Reduction was confirmed on imaging. A cortical screw was drilled, measured and inserted to secure the plate to the shaft distally. The most proximal screw hole in the plate was drilled and a cortical screw was inserted bicortically. A 2.7 mm lag screw was inserted in [id number] fashion to secure the medial wall fragment. Three locking screws were drilled, measured and inserted proximally. Due to the orientation of the various fracture lines, no further screws could be inserted proximally. Two additional screws (one cortical and one locking) were inserted to secure the distal aspect of the plate. Final x-rays were obtained which revealed satisfactory reduction of the fracture. The elbow was then ranged under live fluoroscopy - no motion of the fracture fragments or fixation construct was appreciated. The elbow articulated smoothly without crepitus or grating. All instruments were removed. The wound was thoroughly irrigated with normal saline. The periosteum and distal triceps fascial expansion were repaired with 0 and 2-0 Vicryl. The tourniquet was released after 105 minutes at 250 mmHg. A moderate amount of bleeding was noted from relatively small vessels at the wound edges. Hemostasis was obtained with manual pressure and electrocautery. The subcutaneous tissues were reapproximated with interrupted 2-0 Vicryl sutures and the incision was closed with dilma. Local anesthetic with epinephrine was injected into the perioperative subcutaneous tissues for adjunctive postoperative pain control and hemostasis. Sterile dressings were applied, followed by a long arm posterior plaster splint. All sponge, needle and instrument counts were correct at the end of the case. The patient tolerated the procedure well and was taken to the recovery room in stable condition.
[2019-10-04] MEDS ORDERED: HYDROcodone/APAP 5-325MG 1 EACH TAB PO PRN (21:35)
--- NOTE | 2019-10-04 22:16 | FL ---
EXAMINATION TYPE: FL guidance operating room DATE OF EXAM: 10/04/2019 HISTORY: Fluoroscopy time 2 minutes and 12 seconds of fluoroscopy provided. IMPRESSION: 1. Fluoroscopy time.
--- NOTE | 2019-10-04 22:20 | XR ---
EXAMINATION TYPE: XR elbow limited RT DATE OF EXAM: 10/04/2019 COMPARISON: 09/23/2019 HISTORY: Postop TECHNIQUE: 2 views FINDINGS: There is plate with screws fixing anatomically the fracture of the proximal ulna. The bones are in anatomic position. IMPRESSION: No complicating process seen.
--- NOTE | 2019-10-04 22:24 | XR ---
EXAMINATION TYPE: XR elbow limited RT DATE OF EXAM: 10/04/2019 COMPARISON: NONE HISTORY: Postop TECHNIQUE: 2 views submitted FINDINGS: Evaluation limited by technique. Fractures are noted and there is suggestion postsurgical c hange. A comminuted displaced fracture of the proximal ulna. IMPRESSION: Postoperative change
[2019-10-05] MEDS: MELATONIN 5 MG TABLET PO PRN (01:57)
[2019-10-05] MEDS: ALPRAZolam 0.5 MG TAB PO PRN (01:57)
[2019-10-05] MEDS: ALBUTEROL NEBULIZED 2.5 MG/3 ML INHALATION SCH ×4 (06:52→20:25)
[2019-10-05 07:11] LABS: Glucose,Whole Blood 82 mg/dL (75-99)
--- NOTE | 2019-10-05 08:42 | P.PN ---
<Tania Elias - Last Filed: 10/05/19 08:33> Subjective Progress Note Date: 10/05/19 Principal diagnosis: Status post right olecranon ORIF This is an 79 year-old male post right olecranon ORIF. This is post-op day 1. The patient was evaluated at the bedside today. The patient denies nausea, vomiting, abdominal pain, shortness of breath, and chest pain this morning. He states his pain is controlled at this time. The patient has not been up with physical therapy this morning yet. Objective - Vital Signs Vital signs: Vital Signs Temp 99.2 F 10/05/19 07:00 Pulse 80 10/05/19 07:04 Resp 16 10/05/19 07:04 BP 181/77 10/05/19 07:00 Pulse Ox 93 L 10/05/19 07:00 Intake & Output 10/04/19 10/05/19 10/05/19 18:59 06:59 18:59 Intake Total 1350 0 Output Total 275 Balance 1350 -275 Intake: IV 1350 0 Output: Urine 200 Estimated Blood Loss 75 Other: Voiding Method Diaper Incontinent # Voids 1 2 # Bowel Movements 1 1 - Exam The patient does not appear in acute distress. Alert and orientated x1. Dressing is intact but there is moderate strikethrough on the dressing. Arm is soft and nontender. Good wrist and hand motion without difficulty. Sensation and circulatory status is intact. - Labs CBC & Chem 7: 10/01/19 07:08 10/01/19 07:08 Labs: Abnormal Lab Results - Last 24 Hours (Table) 10/04/19 Range/Units 11:41 POC Glucose (mg/dL) 110 H (75-99) mg/dL Assessment and Plan (1) Post concussive syndrome Current Visit: Yes Status: Acute Code(s): F07.81 - POSTCONCUSSIONAL SYNDROME SNOMED Code(s): 62113050 (2) Fracture of right olecranon process Current Visit: No Status: Acute Code(s): S52.021A - DISP FX OF OLECRAN PRO W/O INTARTIC EXTN RIGHT ULNA, INIT SNOMED Code(s): 224393200 Plan: 1. Continue pain control 2. Non-weightbearing right upper extremity 3. Continue physical therapy and ambulation 4. Anticipate discharge home with homecare in the next 1-2 days. <Mendoza Freitas - Last Filed: 10/05/19 16:15> Objective - Vital Signs Vital signs: Vital Signs Temp 99.0 F 10/05/19 13:00 Pulse 84 10/05/19 16:05 Resp 16 10/05/19 13:00 BP 154/71 10/05/19 13:00 Pulse Ox 94 L 10/05/19 16:05 Intake & Output 10/04/19 10/05/19 10/05/19 18:59 06:59 18:59 Intake Total 1350 0 Output Total 275 Balance 1350 -275 Intake: IV 1350 0 Output: Urine 200 Estimated Blood Loss 75 Other: Voiding Method Diaper Diaper Incontinent Incontinent # Voids 1 2 1 # Bowel Movements 1 1 - Labs CBC & Chem 7: 10/01/19 07:08 10/01/19 07:08 Assessment and Plan Plan: Discussed with KANNAN Elias and agree with above. The patient was subsequently seen and examined by me. S: The patient is again somnolent and minimally interactive. Per the patients (at bedside), hes ornery today and not eating much. He has been up to the bedside chair with PT. O: Patient is very somnolent but rouses easily (especially when moving the arm). Bloody strikethrough on the dressings. The splint was removed. Moderate, appropriate edema. No discrete fluctuance. No erythema. No dehiscence. Jim are in place. No ecchymosis or fracture blisters. A: 1. Postoperative day #1 status post ORIF of comminuted right olecranon fracture 2. Advanced dementia 3. Gait instability and history of falls P: I discussed the clinical findings in detail with Mrs. Darnell. I feel strongly that it would be safer for him to be discharged to rehab for a period of time. I explained that he is at much higher risk of falling and reinjuring himself, as well as potentially causing inadvertent injury to her as well. His mental status may continue to fluctuate for several days to weeks and he will likely require higher acuity care. She seemed amenable to this. Discussed this with the therapeutic case manager who will pursue this further. A new sterile dressing was placed and the splint was reapplied. Continue PT. PRN pain management, only using opioids if absolutely necessary. Plan for discharge to subacute rehab once arrangements have been made, and ideally, after his mentation has improved likely or Thursday. Mendoza Freitas D.O. [facility]
[2019-10-05] MEDS: LOSARTAN 50 MG TAB PO SCH (09:13)
[2019-10-05] MEDS: LACTATED RINGERS 1,000 ML IV SCH (09:14)
--- NOTE | 2019-10-05 10:46 | P.PN ---
Subjective Progress Note Date: 10/05/19 The patient was seen and examined at the bedside on 10/05. Patient underwent surgery for right olecranon fracture on 10/04. He was sleeping comfortably in bed and was easily arousable. He denied active complaints though continues to only be oriented to self. Denied chest pain, shortness of: Nausea, vomiting, fever, or chills. Objective - Vital Signs Vital signs: Vital Signs Temp 99.2 F 10/05/19 07:00 Pulse 74 10/05/19 10:37 Resp 16 10/05/19 10:37 BP 181/77 10/05/19 07:00 Pulse Ox 93 L 10/05/19 07:00 Intake & Output 10/04/19 10/05/19 10/05/19 18:59 06:59 18:59 Intake Total 1350 0 Output Total 275 Balance 1350 -275 Intake: IV 1350 0 Output: Urine 200 Estimated Blood Loss 75 Other: Voiding Method Diaper Diaper Incontinent Incontinent # Voids 1 2 # Bowel Movements 1 1 - Exam General: Non-toxic, in no acute distress, appears stated age, obese HEENT: NC/AT, anicteric sclerae, moist conjunctiva, no lid-lag, PERRLA Cardiovascular: S1/S2 wnl, no murmurs, rubs, or gallops Lungs: Clear to auscultation, normal respiratory effort, no accessory muscle use Abdominal: Soft, non-tender, non-distended, no guarding, rebound, or rigidity Skin: Warm, dry Extremities: No edema or contractures, RUE AMADO bandage in place Psychiatric: Awake, oriented only to person Neuro: CN II-XII grossly intact, Strength 5/5 in all 4 extremities (including RUE with wellness rn strength), Speech intact, Sensation to light touch grossly intact throughout - Labs CBC & Chem 7: 10/01/19 07:08 10/01/19 07:08 Labs: Abnormal Lab Results - Last 24 Hours (Table) 10/04/19 Range/Units 11:41 POC Glucose (mg/dL) 110 H (75-99) mg/dL Assessment and Plan Plan: Altered mental status, likely delirium with low suspicion for postconcussive syndrome -Neurology recs appreciated -Currently at baseline as per discussion with R olecranon fracture s/p repair on 10/04 -Defer to surgery COPD -C/w home Nebulizers Sub-Clinical Hyperthyroidism -Ultrasound of the thyroid showed multinodular goiter and recommended that patient needs to be referred to [facility] as an outpatient for further evaluation in next 3-4 weeks. HTN, controlled -Home med: Losartan Recent falls -Fall precautions
[2019-10-06 00:31] VITALS: RESP 16
[2019-10-06 07:53] VITALS: TEMP 98.7
[2019-10-06] MEDS: ALBUTEROL NEBULIZED 2.5 MG/3 ML INHALATION SCH ×3 (08:39→15:25)
--- NOTE | 2019-10-06 09:05 | P.PN ---
Subjective Progress Note Date: 10/06/19 Principal diagnosis: Status post right olecranon ORIF This is an 79 year-old male post right olecranon ORIF. This is post-op day 2. The patient was evaluated at the bedside today. The patient is very sleepy today and arouses to voice and movement of the right arm. The patient's is deciding on a facility for skilled rehab. no new events overnight per nursing staff. Objective - Vital Signs Vital signs: Vital Signs Temp 98.7 F 10/06/19 07:52 Pulse 82 10/06/19 08:50 Resp 16 10/06/19 07:52 BP 148/91 10/06/19 07:52 Pulse Ox 90 L 10/06/19 07:52 Intake & Output 10/05/19 10/06/19 10/06/19 18:59 06:59 18:59 Other: Voiding Method Diaper Diaper Incontinent Incontinent # Voids 1 2 - Exam The patient does not appear in acute distress. he is sleepy but easily aroused to voice and upon moving the right arm. Dressing and splint is clean dry and intact. Arm is soft and nontender. Sensation and circulatory status is intact. - Labs CBC & Chem 7: 10/01/19 07:08 10/01/19 07:08 Assessment and Plan (1) Post concussive syndrome Current Visit: Yes Status: Acute Code(s): F07.81 - POSTCONCUSSIONAL SYNDROME SNOMED Code(s): 12385027 (2) Fracture of right olecranon process Current Visit: No Status: Acute Code(s): S52.021A - DISP FX OF OLECRAN PRO W/O INTARTIC EXTN RIGHT ULNA, INIT SNOMED Code(s): 685789391 Plan: 1. Continue pain control 2. Non-weightbearing right upper extremity 3. Continue physical therapy and ambulation 4. Anticipate discharge to skilled rehab in the next 1-2 days.
[2019-10-06] MEDS: LOSARTAN 50 MG TAB PO SCH (10:22)
[2019-10-06 10:26] VITALS: BP 147/76
[2019-10-06] MEDS: LACTATED RINGERS 1,000 ML IV SCH (10:36)
--- NOTE | 2019-10-06 12:07 | P.DS ---
Providers Date of admission: 10/02/19 09:44 Expected date of discharge: 10/06/19 Attending physician: Mendoza Freitas DO Consults: 09/30/19 14:19 Consult Physician Routine Consulting Provider: Kary Zuniga Consult Reason/Comments: Altered mental status/medical management Do you want consulting provider notified?: Yes 10/02/19 09:36 Consult Physician Urgent Consulting Provider: Veena Badillo Consult Reason/Comments: mental status, surgical clearance Do you want consulting provider notified?: Yes 10/04/19 15:33 Consult Physician Urgent Consulting Provider: Ahmet Linder Consult Reason/Comments: AMS, suspected post-concussive syndrome vs delirium Do you want consulting provider notified?: Yes Primary care physician: Elie Khan - Ruthy Diagnosis(es) (1) Post concussive syndrome Current Visit: Yes Status: Acute (2) Fracture of right olecranon process Current Visit: No Status: Acute Hospital Course: This is an 79 year-old male who presented to our office with a right displaced olecranon fracture after a fall at home. The patient presented to the orthopedic office for evaluation. After discussion and consideration the patient's elected to proceed with an ORIF of the right olecranon. The patient was admitted to [facility] on 09/30/2019 for increased confusion after another fall at home prior to his scheduled surgery. He was evaluated by internal medicine and neurology. A CT of the head and neck was performed and was negative for fractures or intracranial changes. He underwent an ORIF of the right olecranon on 10/04/[address] Freitas. The procedure was performed without complication or sequelae. The patient is doing ok postoperatively. Labs and vital signs are stable and day of discharge. On the day of discharge the patient's splint is clean, dry, and intact. here is no drainage noted at this time. There is minimal soft tissue swelling to the right upper extremity. The patient has full hand and wrist without difficulty or pain. Neurovascular status to the right upper extremity is intact. The patient will be discharged to skilled rehab today in stable condition. Pertinent Studies: Laboratory Tests 10/01/19 07:08 WBC 10.0 RBC 4.87 Hgb 15.3 Hct 46.3 Patient Condition at Discharge: Stable Plan - Discharge Summary Discharge Rx Participant: No New Discharge Prescriptions: New Acetaminophen Tab [Tylenol] 650 mg PO Q6H #30 tab No Action ALPRAZolam [Xanax] 0.5 mg PO 1400 Losartan Potassium 100 mg PO DAILY Discharge Medication List ALPRAZolam [Xanax] 0.5 mg PO 1400 09/29/19 [History] Losartan Potassium 100 mg PO DAILY 09/29/19 [History] Acetaminophen Tab [Tylenol] 650 mg PO Q6H #30 tab 10/06/19 [Rx] Follow up Appointment(s)/Referral(s): [facility], [NON-STAFF] - As Needed Mendoza Freitas DO [Medical Doctor] - 2 Weeks Activity/Diet/Wound Care/Special Instructions: Keep dressing and splint clean, dry, and intact. If patient removes splint, please try to reapply. Jim to be removed in office in [address] Freitas. [facility] with any questions or concerns, . Discharge Disposition: TRANSFER TO SNF/ECF
--- NOTE | 2019-10-06 12:51 | P.PN ---
Subjective Progress Note Date: 10/06/19 Patient was seen by Dr. Fleming on the weekend. Requested for a follow-up. Patient came to the hospital for a fall, with right olecranon process fracture. Patient underwent surgery of the fracture. Patient was seen by Dr. Fleming for somnolence, increased confusion. It was felt sedation and confusion could be related to medication side effect. Patient does have history of Alzheimer's type dementia. Patient today tells me that he stumbled and fell. He does use a walker and a cane at home. Patient is confused as per examination below. Patient offers no complaints. He is getting a nebulizer treatment at this time. Patient is planning to be discharged today. Patient's workup showed B12 736 on 09/30/2019. TSH is mildly decreased 0.407 but normal free T4 2 0.19. Liver functions renal functions and electrolytes are normal. CBC normal. Objective - Vital Signs Vital signs: Vital Signs Temp 98.7 F 10/06/19 07:52 Pulse 86 10/06/19 12:34 Resp 16 10/06/19 11:45 BP 147/76 10/06/19 10:25 Pulse Ox 90 L 10/06/19 07:52 Intake & Output 10/05/19 10/06/19 10/06/19 18:59 06:59 18:59 Other: Voiding Method Diaper Diaper Diaper Incontinent Incontinent # Voids 1 2 - Exam Patient is alert and awake in no distress. There is no carotid bruit, S1 and S2 audible. No peripheral edema. On mental status testing, patient states it is March or April. Could not tell the current year. Could not tell name of the current president. When I gave him multiple choices, he said was Obama. He states that he is in [facility] but could not tell name of the building that he is in. He does have positive palmomental reflex bilaterally. Patient's pupils are round and reacting. Visual yang are full and face is symmetric. He has bilateral droopy and saggy lower eyelids. Muscle strength is normal in the left arm. In the lower limbs his hips are up to 4+ to 5-, knee extension is normal. Ankle dorsiflexion and is normal on the right whereas 4+ on the left. Left peroneal muscles also weak only on the left side. Patient has hammertoes of the left. Reflexes are 1 at the knees, absent ankles and plantars downgoing. - Labs CBC & Chem 7: 10/01/19 07:08 10/01/19 07:08 Assessment and Plan Assessment: * Status post Altered mental status, likely related to metabolic encephalopathy, now resolved. * Cognitive impairment, due to Alzheimer's dementia, at least moderate degree. * Status post fall, likely due to left foot weakness. Patient has weakness of t he left peroneal muscles and left ankle dorsiflexion. He may have tripped on the left foot. * Status post fall with right Olecranon fracture, status post open reduction and internal fixation of comminuted, intra-articular right Olecranon fracture. Plan: * Patient is being discharged today. * Suggest EMG and nerve conductions of left lower extremity to rule out peroneal nerve compression at the left fibular head or any radiculopathy or polyneuropathy. * Neurologically clear for discharge.
[2019-10-06 15:30] VITALS: PULSE 84
--- NOTE | 2019-10-11 08:41 | CDI ---
Documentation Clarification Form Date: 10/11/19 From: Shaina Jay CCS Phone: If you have a question about this query, please contact Yaritza Mijares, Brewery Representative at [phone] between 8am and 5pm. Admit Date: 10/02/19 Discharge Date: 10/06/19 Patient Name: Karlos Darnell Visit Number: [id number] ATTENTION: The Clinical Documentation Specialists (CDI) and [facility] Coding Staff appreciate your assistance in clarifying documentation. Please respond to the clarification below the line at the bottom and electronically sign. The CDI & [facility] Coding staff will review the response and follow-up if needed. Please note: Queries are made part of the Legal Health Record. If you have any questions, please contact the author of this message via ITS. Dear Dr. Freitas, Encephalopathy is documented in the PNs 09/30-10/06, Consult 09/30. History/Risk Factors: Dementia, repeated falls, fracture, postconcussional syndrome Clinical Indicators: Altered mental status, somnolence, confused CT/MRI Brain: Degenerative and nonspecific white matter changes most typical remote microvascular ischemia; if concern for acute ischemic correlate with MRI as clinically warranted; suspect a subcentimeter interhemispheric extra-axial lesion likely related to calcified hemangioma Treatment: Monitor, delay surgery Consults: Lonnie In your professional opinion, can you please clarify the specific type of Encephalopathy, if known? Hypertensive Encephalopathy Metabolic Encephalopathy Traumatic Encephalopathy Altered mental status related to dementia Other, please specify Unable to determine In this patient, it is very difficult to determine the specific cause. His advanced dementia is the mostly likely reason for the altered mental status, though a traumatic component cannot be ruled out. MTDD
== END 2019-10-06 16:26 | DRG 511 ==
LOC: OR 12:07 → 3SCARD 14:16 → OR 14:16 → 3SCARD 14:34 → 4SSUR 17:03 → OBSVTOIN 10-02 09:44
PROVIDERS: ADMIT Orthopaedic Surgery; ATTEND Orthopaedic Surgery
PROC: 0PSK04Z Reposition Right Ulna with Internal Fixation Device, Open Approach (ICD-10-PCS; principal; 2019-10-04 09:30)
DX: S52.031A Displaced fracture of olecranon process with intraarticular extension of right ulna, initial encounter for closed fracture (principal); G93.49 Other encephalopathy; F07.81 Postconcussional syndrome; G57.32 Lesion of lateral popliteal nerve, left lower limb; F02.80 Dementia in other diseases classified elsewhere, unspecified severity, without behavioral disturbance, psychotic disturbance, mood disturbance, and anxiety; G30.9 Alzheimer's disease, unspecified; G89.29 Other chronic pain; R32 Unspecified urinary incontinence; I10 Essential (primary) hypertension; E55.9 Vitamin D deficiency, unspecified; R29.6 Repeated falls; R27.0 Ataxia, unspecified; E05.20 Thyrotoxicosis with toxic multinodular goiter without thyrotoxic crisis or storm; E66.9 Obesity, unspecified; J44.9 Chronic obstructive pulmonary disease, unspecified; G62.9 Polyneuropathy, unspecified; W01.0XXA Fall on same level from slipping, tripping and stumbling without subsequent striking against object, initial encounter; Z68.34 Body mass index [BMI] 34.0-34.9, adult; Z79.899 Other long term (current) drug therapy; Z98.42 Cataract extraction status, left eye; Z98.41 Cataract extraction status, right eye; Z98.890 Other specified postprocedural states; Z87.891 Personal history of nicotine dependence; Z83.3 Family history of diabetes mellitus; Z82.0 Family history of epilepsy and other diseases of the nervous system
CPT/HCPCS: 70450; 76536; 80048; 80053; 81003; 82607; 83690; 84439; 84443; 84484; 85025; 85027; 93005; 94640; 94760

== ENCOUNTER 2020-04-24 03:47 | Inpatient (IN) | payer MEDICARE ==
[2020-04-24] MEDS ORDERED: PANTOPRAZOLE 40 MG/10 ML VIAL IVP STA (03:48)
[2020-04-24] MEDS ORDERED: SODIUM CHLORIDE 0.9% 1,000 ML IV STA (03:48)
--- NOTE | 2020-04-24 03:53 | ED ---
GI Bleed HPI - General Stated complaint: WEAKNESS Time Seen by Provider: 04/24/20 03:48 - History of Present Illness Initial comments: Karlos is a pleasantly demented 79-year-old gentleman who presents to the ER today via ambulance for evaluation of hematemesis. Per EMS family reported the patient has been home for less than a week from a shelter. Family was in bed when they heard the patient vomiting, they went to check on him and found that he was covered in dark bloody vomitus. EMS was contacted for transfer to the hospital. Further history is limited by the patient's dementia. - Related Data Home Medications Medication Instructions Recorded Confirmed ALPRAZolam [Xanax] 0.25 mg PO DAILY PRN 04/24/20 04/24/20 Donepezil [Aricept] 10 mg PO HS 04/24/20 04/24/20 Losartan [Cozaar] 50 mg PO DAILY 04/24/20 04/24/20 Melatonin 3 mg PO HS 04/24/20 04/24/20 Memantine HCl [Namenda] 5 mg PO HS 04/24/20 04/24/20 Tobramycin [Tobrex 0.3% Ophth Soln] 1 drop BOTH EYES DAILY 04/24/20 04/24/20 Allergies Allergy/AdvReac Type Severity Reaction Status Date / Time No Known Allergies Allergy Verified 04/24/20 06:17 Review of Systems ROS Statement: Those systems with pertinent positive or pertinent negative responses have been documented in the HPI. ROS Other: All systems not noted in ROS Statement are negative. Past Medical History Past Medical History: Dementia, Hypertension Additional Past Medical History / Comment(s): fx rt arm, vit d deficiency History of Any Multi-Drug Resistant Organisms: None Reported Additional Past Surgical History / Comment(s): rt hip surgery, b/l cataract Past Anesthesia/Blood Transfusion Reactions: No Reported Reaction Past Psychological History: No Psychological Hx Reported Additional Psychological History / Comment(s): dementia Past Alcohol Use History: Daily Additional Past Alcohol Use History / Comment(s): quit smoking 30 years ago, smoked 30 years 1 1/2 ppd Past Drug Use History: None Reported Additional Drug Use History / Comment(s): walker - Past Family History Mother Family Medical History: Dementia, Diabetes Mellitus Sister(s) Family Medical History: Dementia General Exam - General Exam Comments Initial Comments: Physical Exam GENERAL: Chronically ill appearing HENT: Normocephalic, Atraumatic. EYES: PERRL, EOMI No conjunctival pallor PULMONARY: Unlabored respirations. CARDIOVASCULAR: RRR Warm and well perfused extremities ABDOMEN: Distended, soft, no obvious tenderness to palpation SKIN: No pallor : Deferred NEUROLOGIC: Alert and oriented to self MUSCULOSKELETAL: Generalized atrophy PSYCHIATRIC: unable to assess Course Vital Signs 04/24/20 04/24/20 03:59 04:47 Temperature 98.1 F Pulse Rate 76 72 Respiratory 18 19 Rate Blood Pressure 140/80 107/75 O2 Sat by Pulse 97 96 Oximetry Medical Decision Making - Medical Decision Making The patient was seen and evaluated, history is obtained from the patient and EMS until family arrived and provided further history On arrival the patient is in acute distress, dark malodorosy vomitus concerning for feculent material versus dark hematemesis with a distended abdomen Labs and imaging were obtained Family arrived at bedside, at approximately 4:45 AM family called staff to the room, patient had a run of V. tach followed by bradycardia and became unresponsive this lasted approximately 45 seconds family confirmed they did not want CPR or heroic measures, wanted the patient to be made comfortable. However patient did have return of pulses and mental status Despite the normal abdominal x-ray and relatively normal labs, computed tomography scan of the chest abdomen and pelvis was ordered to further investigate the cause of the patient's condition Computed tomography scan confirms intra-abdominal free air evidence of perforation unable to be localized on CT due to lack of oral contrast These results were relayed to the family at bedside the , daughter and son. They're aware that this is not compatible with life and require surgical intervention for repair however patient is not at healthy candidate for surgery and they do not want to pursue surgical intervention. At this time they would like the patient to be made comfort care only. They will discussed with hospice but have expressed preference that the patient if he is going to in the hospital rather than in the home. - Lab Data Result diagrams: 04/24/20 03:55 04/24/20 03:55 Lab Results 04/24/20 04/24/20 04/24/20 Range/Units 03:54 03:55 03:55 WBC 7.5 (3.8-10.6) k/uL RBC 4.84 (4.30-5.90) m/uL Hgb 14.6 (13.0-17.5) gm/dL Hct 46.7 (39.0-53.0) % MCV 96.4 (80.0-100.0) fL MCH 30.3 (25.0-35.0) pg MCHC 31.4 (31.0-37.0) g/dL RDW 14.3 (11.5-15.5) % Plt Count 161 (150-450) k/uL Neutrophils % 75 % Lymphocytes % 11 % Monocytes % 9 % Eosinophils % 3 % Basophils % 1 % Neutrophils # 5.6 (1.3-7.7) k/uL Lymphocytes # 0.8 L (1.0-4.8) k/uL Monocytes # 0.7 (0-1.0) k/uL Eosinophils # 0.3 (0-0.7) k/uL Basophils # 0.1 (0-0.2) k/uL APTT 24.4 (22.0-30.0) sec Sodium (137-145) mmol/L Potassium (3.5-5.1) mmol/L Chloride (98-107) mmol/L Carbon Dioxide (22-30) mmol/L Anion Gap mmol/L BUN (9-20) mg/dL Creatinine (0.66-1.25) mg/dL Est GFR (CKD-EPI)AfAm (>60 ml/min/1.73 sqM) Est GFR (CKD-EPI)NonAf (>60 ml/min/1.73 sqM) Glucose (74-99) mg/dL Plasma Lactic Acid Julian (0.7-2.0) mmol/L Calcium (8.4-10.2) mg/dL Total Bilirubin (0.2-1.3) mg/dL AST (17-59) U/L ALT (4-49) U/L Alkaline Phosphatase (38-126) U/L Troponin I (0.000-0.034) ng/mL Total Protein (6.3-8.2) g/dL Albumin (3.5-5.0) g/dL Blood Type Blood Type Confirm O Positive Blood Type Recheck Bld Type Recheck Status Antibody Screen Spec Expiration Date 04/24/20 04/24/20 04/24/20 Range/Units 03:55 03:55 03:55 WBC (3.8-10.6) k/uL RBC (4.30-5.90) m/uL Hgb (13.0-17.5) gm/dL Hct (39.0-53.0) % MCV (80.0-100.0) fL MCH (25.0-35.0) pg MCHC (31.0-37.0) g/dL RDW (11.5-15.5) % Plt Count (150-450) k/uL Neutrophils % % Lymphocytes % % Monocytes % % Eosinophils % % Basophils % % Neutrophils # (1.3-7.7) k/uL Lymphocytes # (1.0-4.8) k/uL Monocytes # (0-1.0) k/uL Eosinophils # (0-0.7) k/uL Basophils # (0-0.2) k/uL APTT (22.0-30.0) sec Sodium 141 (137-145) mmol/L Potassium 4.2 (3.5-5.1) mmol/L Chloride 109 H (98-107) mmol/L Carbon Dioxide 27 (22-30) mmol/L Anion Gap 5 mmol/L BUN 23 H (9-20) mg/dL Creatinine 0.85 (0.66-1.25) mg/dL Est GFR (CKD-EPI)AfAm >90 (>60 ml/min/1.73 sqM) Est GFR (CKD-EPI)NonAf 82 (>60 ml/min/1.73 sqM) Glucose 112 H (74-99) mg/dL Plasma Lactic Acid Julian 0.9 (0.7-2.0) mmol/L Calcium 9.2 (8.4-10.2) mg/dL Total Bilirubin 0.6 (0.2-1.3) mg/dL AST 22 (17-59) U/L ALT 14 (4-49) U/L Alkaline Phosphatase 94 (38-126) U/L Troponin I <0.012 (0.000-0.034) ng/mL Total Protein 6.5 (6.3-8.2) g/dL Albumin 3.8 (3.5-5.0) g/dL Blood Type Blood Type Confirm Blood Type Recheck Bld Type Recheck Status Antibody Screen Spec Expiration Date 04/24/20 Range/Units 04:00 WBC (3.8-10.6) k/uL RBC (4.30-5.90) m/uL Hgb (13.0-17.5) gm/dL Hct (39.0-53.0) % MCV (80.0-100.0) fL MCH (25.0-35.0) pg MCHC (31.0-37.0) g/dL RDW (11.5-15.5) % Plt Count (150-450) k/uL Neutrophils % % Lymphocytes % % Monocytes % % Eosinophils % % Basophils % % Neutrophils # (1.3-7.7) k/uL Lymphocytes # (1.0-4.8) k/uL Monocytes # (0-1.0) k/uL Eosinophils # (0-0.7) k/uL Basophils # (0-0.2) k/uL APTT (22.0-30.0) sec Sodium (137-145) mmol/L Potassium (3.5-5.1) mmol/L Chloride (98-107) mmol/L Carbon Dioxide (22-30) mmol/L Anion Gap mmol/L BUN (9-20) mg/dL Creatinine (0.66-1.25) mg/dL Est GFR (CKD-EPI)AfAm (>60 ml/min/1.73 sqM) Est GFR (CKD-EPI)NonAf (>60 ml/min/1.73 sqM) Glucose (74-99) mg/dL Plasma Lactic Acid Julian (0.7-2.0) mmol/L Calcium (8.4-10.2) mg/dL Total Bilirubin (0.2-1.3) mg/dL AST (17-59) U/L ALT (4-49) U/L Alkaline Phosphatase (38-126) U/L Troponin I (0.000-0.034) ng/mL Total Protein (6.3-8.2) g/dL Albumin (3.5-5.0) g/dL Blood Type O Positive Blood Type Confirm Blood Type Recheck No Previous Record Bld Type Recheck Status CABO Indicated Antibody Screen NEGATIVE Spec Expiration Date 04/27/2020 - 2300 Critical Care Time Critical Care Time: Yes Total Critical Care Time: 30 Critical Care Time: Critical Care Time 30 min Critical care time was exclusive of separately billable procedures and treating other patients and teaching time. Critical care was necessary to treat or prevent imminent or life-threatening deterioration. Given the critical condition in which the patient arrived, the patient was immediately assessed by myself and the nurse, and cardiac monitoring initiated due to the potential for rapid decompensation of the patient's clinical condition. During the course of the patients stay, I spent a considerable amount of time at the bedside performing serial re-evaluations of the patient's hemodynamic and clinical status because of the recognized potential threat to life or limb in this condition. I then had a chance to review not only all of the available current laboratory and radiographic studies obtained today, but I also reviewed old records available to me at the time. Additionally, any ancillary information available including sub plant manager records were reviewed. Sequential vital signs were obtained. Disposition Clinical Impression: Bowel perforation, V-tach, End of life care Disposition: ADMITTED IP TO THIS [facility] Condition: Critical
[2020-04-24 04:04] VITALS: TEMP 98.1
--- NOTE | 2020-04-24 04:08 | XR ---
EXAMINATION TYPE: XR abdomen acute w cxr DATE OF EXAM: 04/24/2020 COMPARISON: NONE HISTORY: Hematemesis TECHNIQUE: 4 views including chest x-ray FINDINGS: There is no heart failure nor confluent pneumonic infiltrate. There is mild subsegmental at electasis left lower lobe. There is no pleural effusion. There is some gas-filled loops of large and small bowel throughout the abdomen. There is right hip pr osthesis. There is no evidence of pneumoperitoneum. There are numerous phleboliths in the pelvis. IMPRESSION: Mild scarring or subsegmental atelectasis left lung base. Normal heart. No heart failure. Abdominal gas pattern suggestive of some intestinal ileus. I do not see evidence for mechanical bowel obstruction.
[2020-04-24 04:10] LABS: Basophils # (A) 0.1 k/uL (0-0.2); Basophils % (A) 1 %; Eosinophils # (A) 0.3 k/uL (0-0.7); Eosinophils % (A) 3 %; HCT 46.7 % (39.0-53.0); HGB 14.6 gm/dL (13.0-17.5); Lymphocytes # (A) 0.8 k/uL (1.0-4.8); Lymphocytes % (A) 11 %; MCH 30.3 pg (25.0-35.0); MCHC 31.4 g/dL (31.0-37.0); MCV 96.4 fL (80.0-100.0); Mean Platelet Volume 7.6; Monocytes # (A) 0.7 k/uL (0-1.0); Monocytes % (A) 9 %; Neutrophils # (A) 5.6 k/uL (1.3-7.7); Neutrophils % (A) 75 %; Platelet Count 161 k/uL (150-450); RBC 4.84 m/uL (4.30-5.90); RDW 14.3 % (11.5-15.5); WBC 7.5 k/uL (3.8-10.6)
[2020-04-24 04:18] LABS: ALT 14 U/L (4-49); AST 22 U/L (17-59); African American GFR (CKD) >90 (>60 ml/min/1.73 sqM); Albumin 3.8 g/dL (3.5-5.0); Alkaline Phosphatase 94 U/L (38-126); Anion Gap 5 mmol/L; Blood Urea Nitrogen 23 mg/dL (9-20); Calcium 9.2 mg/dL (8.4-10.2); Carbon Dioxide 27 mmol/L (22-30); Chloride 109 mmol/L (98-107); Glucose 112 mg/dL (74-99); Non-African American GFR(CKD) 82 (>60 ml/min/1.73 sqM); Potassium 4.2 mmol/L (3.5-5.1); Sodium 141 mmol/L (137-145); Total Bilirubin 0.6 mg/dL (0.2-1.3); Total Protein 6.5 g/dL (6.3-8.2)
[2020-04-24] MEDS ORDERED: GLYCOPYRROLATE 0.2 MG/ML 2 ML VIAL IVP ONE (05:00)
[2020-04-24] MEDS ORDERED: NALOXONE 0.4 MG/ML 1 ML VIAL IV PRN (05:24)
[2020-04-24] MEDS ORDERED: ONDANSETRON 4 MG/2 ML VIAL IVP PRN (05:24)
[2020-04-24] MEDS ORDERED: LORazepam 2 MG/ML INJ IV PRN (05:24)
[2020-04-24] MEDS ORDERED: MORPHINE SULFATE 4 MG/ML SYRINGE IV PRN (05:24)
--- NOTE | 2020-04-24 06:08 | CT ---
EXAMINATION TYPE: CT ChestAbdPelvis w con DATE OF EXAM: 04/24/2020 COMPARISON: None HISTORY: Vomiting CT DLP: 1742.50 mGycm Automated exposure control for dose reduction was used. CONTRAST: Performed with IV Contrast, patient injected with 100 mL of Isovue 300. There is minimal subsegmental atelectasis at the lung bases. There is no pericardial effusion. There is no pleural effusion. There is no mediastinal adenopathy. There are no hilar masses. There is diste nded fluid-filled thoracic esophagus. There is distended air and fluid-filled stomach. Liver shows no focal defect. Spleen is intact. There is no evidence of pancreatic mass. Gallbladder appears normal. The bile ducts are not dilated. There is no adrenal mass. There are bilateral renal cortical cysts that measure up to 8 cm. There is no hydronephrosis. Delayed images show very little contrast in the collecting systems of both kidneys . There is no retroperitoneal adenopathy. Abdominal aorta is atheromatous. There is mild urinary blad lito wall thickening. There is right hip prosthesis. There is retained fecal material in the large bow el. There are some distended fluid-filled loops of small bowel in the mid abdomen. Small bowel measu res up to 3.5 cm. There is no ascites. There is 25% wedging of T12 vertebra. There is extensive bridging osteophyte formation in the thoraci c and lumbar spine. The bony pelvis appears intact. Sternum is intact. Thoracic and abdominal aorta a re atheromatous. There is no aneurysm or dissection. IMPRESSION: There is a small pneumoperitoneum with air around the stomach. Source of the air is not clear. Constipation. Dilated stomach and small bowel suggestive of gastroparesis and small bowel ileus. Part ial mechanical obstruction is possible. Fluid in the esophagus probably due to reflux. This exam was discussed with Dr. Randolph at 6:00 AM.
[2020-04-24 07:04] VITALS: BP 127/83; PULSE 73; RESP 16
[2020-04-24] MEDS ORDERED: ARTIFICIAL TEARS-HYPROMELLOSE DROPS 15 ML BTL BOTH EYES PRN (08:00)
[2020-04-24] MEDS: HYDROmorphone 1 MG/ML 1 ML SYRINGE IVP PRN ×2 (08:56→12:01)
[2020-04-24] MEDS ORDERED: PANTOPRAZOLE 40 MG/10 ML VIAL IV SCH (09:00)
[2020-04-24] MEDS ORDERED: GLYCOPYRROLATE 0.2 MG/ML 2 ML VIAL IVP PRN (12:00)
--- NOTE | 2020-04-24 23:32 | P.HPIM ---
History of Present Illness Please consider this note as combined H&P and discharge summary Diagnoses: End of life care, hospice care Hematemesis Air around the stoma, possible bowel perforation Gastroparesis Small bowel ileus with partial mechanical obstruction is possible Reflux esophagitis Advanced and end-stage dementia Hypertension Hospital course This is an 79 years old male with past medical history of dementia and hyper tension. Patient presents with hematemesis His blood pressure was 127/83, he was afebrile, not tachycardic or tachypneic however he was non-responsive and could not provide information. Left showing hemoglobin of 14.6 WBC 7.5. Sodium 141, potassium 4.[address] of the abdomen showing small pneumoperitoneum with air around the stomach. Sounds are is not clear. Constipation. Dilated stomach and small bowel suggestive of gastroparesis and small bowel ileus. Partial mechanical obstruction is possible. Fluid in the esophagus probably due to reflux. As per my discussion with the emergency room physician Dr. Randolph, family they don't want any aggressive measurement due to his advanced dementia and they refused surgical consult and care, wrist and they wanted the patient to be Comfort Care and hospice Patient was seen and examined at bedside, I talked to the family including the and siblings at bedside and they confirmed to me that the patient is DO NOT INTUBATE and DO NOT RESUSCITATE and that they wanted to be Comfort Care and hospice with no any further testing or management due to his advanced dementia and complicated medical problem which is carrying already a high mortality rate. And given to patient condition I don't think the patient was going to survive his illness anyway and Comfort Care looks appropriate in view of his advanced dementia as well Consult was placed for hospice service Review of systems: N/a Physical exam -GENERAL: The patient is unresponsive HEENT: Pupils are round and equally reacting to light. EOMI. No scleral icterus. CARDIOVASCULAR: S1 and S2 present. No murmurs, rubs, or gallops. PULMONARY: Chest is clear to auscultation, no wheezing or crackles. ABDOMEN: Soft, abdomen is tender with no distention EXTREMITIES: No cyanosis, clubbing, or pedal edema. Prognosis is guarded and very poor Review of Systems N/a Past Medical History Past Medical History: Dementia, Hypertension Additional Past Medical History / Comment(s): fx rt arm, vit d deficiency History of Any Multi-Drug Resistant Organisms: None Reported Additional Past Surgical History / Comment(s): rt hip surgery, b/l cataract Past Anesthesia/Blood Transfusion Reactions: No Reported Reaction Past Psychological History: No Psychological Hx Reported Additional Psychological History / Comment(s): dementia Past Alcohol Use History: Daily Additional Past Alcohol Use History / Comment(s): quit smoking 30 years ago, smoked 30 years 1 1/2 ppd Past Drug Use History: None Reported Additional Drug Use History / Comment(s): walker - Past Family History Mother Family Medical History: Dementia, Diabetes Mellitus Sister(s) Family Medical History: Dementia Medications and Allergies Home Medications Medication Instructions Recorded Confirmed Type ALPRAZolam [Xanax] 0.25 mg PO DAILY PRN 04/24/20 04/24/20 History Donepezil [Aricept] 10 mg PO HS 04/24/20 04/24/20 History Losartan [Cozaar] 50 mg PO DAILY 04/24/20 04/24/20 History Melatonin 3 mg PO HS 04/24/20 04/24/20 History Memantine HCl [Namenda] 5 mg PO HS 04/24/20 04/24/20 History Tobramycin [Tobrex 0.3% Ophth Soln] 1 drop BOTH EYES DAILY 04/24/20 04/24/20 History Allergies Allergy/AdvReac Type Severity Reaction Status Date / Time No Known Allergies Allergy Verified 04/24/20 06:17 Physical Exam Vitals: Vital Signs Temp Pulse Resp BP Pulse Ox 04/24/20 06:30 73 16 127/83 98 04/24/20 04:47 72 19 107/75 96 04/24/20 03:59 98.1 F 76 18 140/80 97 Intake and Output 04/23/20 04/24/20 04/24/20 22:59 06:59 14:59 Other: Weight 87.362 kg Results CBC & Chem 7: 04/24/20 03:55 04/24/20 03:55 Labs: Abnormal Lab Results - Last 24 Hours (Table) 04/24/20 04/24/20 Range/Units 03:55 03:55 Lymphocytes # 0.8 L (1.0-4.8) k/uL Chloride 109 H (98-107) mmol/L BUN 23 H (9-20) mg/dL Glucose 112 H (74-99) mg/dL
== END 2020-04-24 12:47 | disposition hospice, home (50) | DRG 394 ==
LOC: EC 03:47 → 3SCARD 05:24 → 5NMEDONC 06:10
PROVIDERS: ADMIT Hospitalist; ATTEND Hospitalist
DX: K63.1 Perforation of intestine (nontraumatic) (principal); I47.2 Ventricular tachycardia; F03.90 Unspecified dementia, unspecified severity, without behavioral disturbance, psychotic disturbance, mood disturbance, and anxiety; I10 Essential (primary) hypertension; Z51.5 Encounter for palliative care; Z66 Do not resuscitate; K21.0 Gastro-esophageal reflux disease with esophagitis; K31.84 Gastroparesis; K59.00 Constipation, unspecified; Z79.899 Other long term (current) drug therapy; Z83.3 Family history of diabetes mellitus; Z87.891 Personal history of nicotine dependence; I45.10 Unspecified right bundle-branch block; Z98.42 Cataract extraction status, left eye; Z98.41 Cataract extraction status, right eye; Z82.0 Family history of epilepsy and other diseases of the nervous system; E55.9 Vitamin D deficiency, unspecified
CPT/HCPCS: 36415; 71260; 74022; 74177; 80053; 83605; 84484; 85025; 85730; 86850; 86900; 86901; 93005; 96361; 96365; 96375; 96376; 99291